=== PATIENT | male | born 1985 ===

== ENCOUNTER 2017-04-05 14:01 | Emergency (ER) | payer MEDICAID, OTHER ==
[2017-04-05 14:01] VITALS: BMI 30.4
[2017-04-05 14:30] VITALS: BP 130/83; PULSE 88; RESP 20; TEMP 98.7; O2SAT 98
--- NOTE | 2017-04-05 16:26 | RAD ---
HISTORY: cough/fever COMPARISON: No prior. TECHNIQUE: Chest PA and lateral FINDINGS: LUNGS: No active pulmonary disease. PLEURA: No significant pleural effusion identified. No pneumothorax apparent. CARDIOVASCULAR: Normal. OSSEOUS STRUCTURES: No significant abnormalities. VISUALIZED UPPER ABDOMEN: Normal. OTHER FINDINGS: None. IMPRESSION: No active disease.
--- NOTE | 2017-04-05 18:27 | ED PDOC ---
Arrival/HPI - General Chief Complaint: Flu-like Symptoms Time Seen by Provider: 04/05/17 15:06 Historian: Patient - History of Present Illness Narrative History of Present Illness (Text): 04/05/17 18:28 31-year-old male presents today with cough and nasal congestion and sore throat 4 days. Patient states he is having high fevers at home for the past 2 days but has been feeling better. Patient states all other family members are sick with similar symptoms. Patient denies dizziness or weakness. No chest pain or shortness of breath. Denies abdominal pain. No other complaints Time/Duration: Other (4 days) Symptom Onset: Gradual Symptom Course: Improving Quality: Aching Past Medical History - Provider Review Nursing Documentation Reviewed: Yes - Travel History Have you recently traveled outside [place] w/in the past 3 mons?: No - Infectious Disease Hx of Infectious Diseases: None - Psychiatric Hx Depression: No Hx Emotional Abuse: No Hx Physical Abuse: No Hx Substance Use: Yes (CANNABIS) - Suicidal Assessment Feels Threatened In Home Enviroment: No Family/Social History - Physician Review Nursing Documentation Reviewed: Yes Family/Social History: Unknown Family HX Smoking Status: Never Smoked Hx Alcohol Use: Yes Hx Substance Use: Yes (CANNABIS) Allergies/Home Meds Allergies/Adverse Reactions: Allergies No Known Allergies Allergy (Verified 09/12/15 13:02) Review of Systems - Review of Systems Constitutional: Fevers. absent: Fatigue ENT: Sore Throat, Sinus Congestion Respiratory: Cough Cardiovascular: absent: Chest Pain, Palpitations Gastrointestinal: absent: Abdominal Pain, Nausea, Vomiting Musculoskeletal: absent: Arthralgias Skin: absent: Rash, Pruritis Neurological: Headache. absent: Dizziness Psychiatric: absent: Anxiety, Depression Physical Exam Vital Signs Reviewed: Yes Vital Signs Temp Pulse Resp BP Pulse Ox 04/05/17 14:27 98.7 F 88 20 130/83 98 Temperature: Afebrile Blood Pressure: Normal Pulse: Regular Respiratory Rate: Normal Appearance: Positive for: Well-Appearing, Non-Toxic, Comfortable Pain Distress: None Mental Status: Positive for: Alert and Oriented X 3 - Systems Exam Head: Present: Atraumatic Conjunctiva: Present: Normal Ears: Present: Normal, NORMAL TM Mouth: Present: Moist Mucous Membranes, Normal Lips, Normal Tounge. No: Drooling, Trismus Pharnyx: Present: Normal. No: ERYTHEMA, EXUDATE, TONSILS ENLARGED, Peritonsilar Swelling, Uvular Deviation, Muffled/Hoarse Voice Neck: Present: Normal Range of Motion, Trachea Midline. No: Meningeal Signs, Lymphadenopathy Respiratory/Chest: Present: Clear to Auscultation, Good Air Exchange. No: Respiratory Distress, Accessory Muscle Use Cardiovascular: Present: Regular Rate and Rhythm, Normal S1, S2. No: Murmurs Abdomen: No: Tenderness, Distention, Rebound, Guarding Upper Extremity: Present: Normal ROM Lower Extremity: Present: Normal ROM Neurological: Present: GCS=15, Speech Normal Skin: Present: Warm, Dry, Normal Color. No: Rashes Psychiatric: Present: Alert, Oriented x 3 Medical Decision Making ED Course and Treatment: 04/05/17 18:36 Patient is nontoxic well-appearing in no distress. Vital signs are stable. Motrin cxr; no infiltrate rapid flu; negative pt family with + flu; will treat patient with tamiflu. I advised follow up with primary care physician within the next 2 days. I advised increase fluids and return if symptoms worsen persist or if new symptoms develop. Patient verbalizes understanding of discharge instructions and need for immediate followup. all aspects of this case were discussed the attending of record. IMPRESSION; influenza Motrin every 6 hours as needed for pain/fever reduction Tamiflu; twice daily x 5 days. Increase fluids Followup with primary care physician the next 2 days Return if symptoms worsen persist or if new symptoms develop - Lab Interpretations Lab Results: Lab Results 04/05/17 15:30: Influenza Typ A,B (EIA) Negative for flu a/b - RAD Interpretation Radiology Orders: 04/05/17 15:26 CHEST TWO VIEWS (PA/LAT) [RAD] Stat - Medication Orders Current Medication Orders: Discontinued Medications Ibuprofen (Motrin Tab) 600 mg PO STAT STA Stop: 04/05/17 15:27 Last Admin: 04/05/17 15:43 Dose: 600 mg MAR Pain/Vitals Document 04/05/17 15:43 ALVARO (Rec: 04/05/17 15:43 ALVARO [id number]) Pain Reassessment Is This A Pain ReAssessment? No Oseltamivir Phosphate (Tamiflu Cap) 75 mg PO STAT STA PRN Reason: Protocol Stop: 04/05/17 17:50 Disposition/Present on Arrival - Present on Arrival Any Indicators Present on Arrival: No History of DVT/PE: No History of Uncontrolled Diabetes: No Urinary Catheter: No History of Decub. Ulcer: No History Surgical Site Infection Following: None - Disposition Have Diagnosis and Disposition been Completed?: Yes Diagnosis: Influenza Disposition: HOME/ ROUTINE Disposition Time: 18:23 Patient Plan: Discharge Condition: GOOD Discharge Instructions (ExitCare): Influenza (ED) Additional Instructions: Motrin every 6 hours as needed for pain/fever reduction Tamiflu; twice daily x 5 days. Increase fluids Followup with primary care physician the next 2 days Return if symptoms worsen persist or if new symptoms develop Prescriptions: Ibuprofen [Motrin] 600 mg PO Q6H PRN #20 tab PRN Reason: pain/fever reduction Oseltamivir [Tamiflu] 75 mg PO BID #10 cap Referrals: Igor Henriquez, [Primary Care Provider] - Follow up with primary Buddy Agrawal DO [Staff Provider] - Follow up with primary Forms: [facility] (Frisian), WORK NOTE
== END 2017-04-05 18:54 | disposition home or self-care (01) ==
LOC: ED 14:01
DX: J11.1 Influenza due to unidentified influenza virus with other respiratory manifestations (principal)

== ENCOUNTER 2017-05-23 15:14 | Emergency (ER) | payer OTHER ==
[2017-05-23 15:57] VITALS: BP 124/82; PULSE 68; TEMP 97.8
--- NOTE | 2017-05-23 15:57 | ED PDOC ---
Arrival/HPI - General Time Seen by Provider: 05/23/17 15:47 Historian: Patient - History of Present Illness Narrative History of Present Illness (Text): 05/23/17 15:54 31yo male with PMHx of PTSD who present with sharp/crampy left sided lower back elizabeth nx days. He notes that his pain started after lifting one thousand pounds object at work, with other employees. States he saw his PMD yesterday that gave him Ibuprofen and flexeril. States he took it and it relieved the pain and made him drowsy. States he started having the pain again today, hours after taking the pain. Notes worsening pain with movement and palpation. He denies focal weakness, abdominal pain, urinary/fecal incontinence, urinary symptoms, fever, chills, any other complaint. Past Medical History - Provider Review Nursing Documentation Reviewed: Yes - Infectious Disease Hx of Infectious Diseases: None - Psychiatric Hx Depression: No Hx Emotional Abuse: No Hx Physical Abuse: No Hx Substance Use: Yes (CANNABIS) - Suicidal Assessment Feels Threatened In Home Enviroment: No Family/Social History - Physician Review Nursing Documentation Reviewed: Yes Family/Social History: Unknown Family HX Smoking Status: Never Smoked Hx Alcohol Use: Yes Hx Substance Use: Yes (CANNABIS) Allergies/Home Meds Allergies/Adverse Reactions: Allergies No Known Allergies Allergy (Verified 09/12/15 13:02) Home Medications: Home Meds Medication Instructions Recorded Confirmed Unobtainable 05/23/17 05/23/17 Review of Systems - Physician Review All systems were reviewed & negative as marked: Yes - Review of Systems Constitutional: Normal Eyes: Normal ENT: Normal Respiratory: Normal Cardiovascular: Normal Gastrointestinal: Normal Genitourinary Male: Normal Musculoskeletal: Back Pain Skin: Normal Neurological: Normal Endocrine: Normal Hemo/Lymphatic: Normal Psychiatric: Normal Physical Exam Vital Signs Reviewed: Yes Vital Signs Temp Pulse Resp BP Pulse Ox 05/23/17 17:13 19 99 05/23/17 15:57 97.8 F 68 18 124/82 98 Temperature: Afebrile Blood Pressure: Normal Pulse: Regular Respiratory Rate: Normal Appearance: Positive for: Well-Appearing, Non-Toxic, Comfortable Pain Distress: None Mental Status: Positive for: Alert and Oriented X 3 - Systems Exam Head: Present: Atraumatic, Normocephalic Pupils: Present: PERRL Extroacular Muscles: Present: EOMI Conjunctiva: Present: Normal Mouth: Present: Moist Mucous Membranes Neck: Present: Normal Range of Motion Respiratory/Chest: Present: Clear to Auscultation, Good Air Exchange. No: Respiratory Distress, Accessory Muscle Use Cardiovascular: Present: Regular Rate and Rhythm, Normal S1, S2. No: Murmurs Abdomen: Present: Normal Bowel Sounds. No: Tenderness, Distention, Peritoneal Signs Back: Present: Paraspinal Tenderness (Left sided paralumbar tenderness), Pain with Leg Raise (B/L worse on the right). No: Midline Tenderness Upper Extremity: Present: Normal Inspection. No: Cyanosis, Edema Lower Extremity: Present: Normal Inspection. No: Edema Neurological: Present: GCS=15, CN II-XII Intact, Speech Normal Skin: Present: Warm, Dry, Normal Color. No: Rashes Psychiatric: Present: Alert, Oriented x 3, Normal Insight, Normal Concentration Medical Decision Making ED Course and Treatment: 05/23/17 19:50 Pt's pain was reproducible in ED. His pain improved in ED with medication. He was ambulatory and neurologically intact. LS xray - Negative Result was DW the pt. He was DC home and advised to applied warm compress/ shower to area. He was also advised to continue with the ibuprofen/flexeril he have from his PMD. - RAD Interpretation Radiology Orders: 05/23/17 15:53 LS SPINE WITH OBL > 18 YRS OLD [RAD] Stat - Medication Orders Current Medication Orders: Discontinued Medications Ketorolac Tromethamine (Toradol) 60 mg IM STAT STA Stop: 05/23/17 15:55 Last Admin: 05/23/17 16:07 Dose: 60 mg [facility] Pain Assessment Document 05/23/17 16:07 CAST (Rec: 05/23/17 16:[address]- [id number]) Pain Reassessment Is this a pain reassessment? No Sleep Is patient sleeping during reassessment? No Presence of Pain Presence of Pain Yes Pain Scale Used Pain Scale Used Numeric Location Left, Right or Bilateral Left Upper or Lower Lower Pain Location Body Site Back Description Description Constant Intensity of Pain at present 8 Pain Behavior Screaming Aggravating Factors Changing Position Alleviating Factors/Management Medication Techniques Alleviating Factors Medication IM Administration Charges Document 05/23/17 16:07 [email or web address] (Rec: 05/23/17 16:08 [email or web address] [facility] [place] [id number][place] Injection Site MAR Injection Site Left Gluteus Dwayne Charges for Administration # of IM Administrations 1 Disposition/Present on Arrival - Present on Arrival Any Indicators Present on Arrival: No History of DVT/PE: No History of Uncontrolled Diabetes: No Urinary Catheter: No History Surgical Site Infection Following: None - Disposition Have Diagnosis and Disposition been Completed?: Yes Diagnosis: Back pain Disposition: HOME/ ROUTINE Disposition Time: 17:05 Patient Plan: Discharge Condition: STABLE Discharge Instructions (ExitCare): Low Back Pain in Adults Additional Instructions: Follow up with your Doctor/orthopedist Return to ED for any new or worsening symptoms Referrals: PCP,NO [Primary Care Provider] - Follow up with primary Randy Weaver MD [Staff Provider] - Follow up with primary Forms: WORK NOTE
[2017-05-23 15:58] VITALS: BMI 30.4
--- NOTE | 2017-05-23 17:02 | RAD ---
PROCEDURE: Radiographs of the Lumbar Spine. HISTORY: back pain COMPARISON: No prior. FINDINGS: BONES: Normal alignment. No listhesis. No fracture. DISC SPACES: Unremarkable. OTHER FINDINGS: None. IMPRESSION: Unremarkable radiographs of the lumbar spine.
[2017-05-23 17:13] VITALS: RESP 19; O2SAT 99
== END 2017-05-23 17:13 | disposition home or self-care (01) ==
LOC: ED 15:14
DX: M54.5 Low back pain (principal)
CPT/HCPCS: 72110; 96372; 99282; J1885